=== PATIENT | male | born 1970 | race Caucasian/White ===

== ENCOUNTER → 2017-12-05 | Outpatient (CLI) | payer OTHER | LOC: FIMAGING 15:45 | PROVIDERS: ATTEND Internal Medicine Pulmonary Disease | DX: J98.4 Other disorders of lung (principal) ==

== ENCOUNTER 2018-05-20 12:43 | Emergency (ER) | payer OTHER ==
--- NOTE | 2018-05-20 14:25 | EDPHY ---
H & P Stated Complaint: sob/dry cough/ hx cryptogenic organizing pna Time Seen by Provider: 05/20/18 14:14 HPI/ROS: CHIEF COMPLAINT: Dry nonproductive cough HISTORY OF PRESENT ILLNESS: The patient presents to the ED with a one-week history of a dry nonproductive cough. The patient complains of mild associated rhinorrhea. He has dyspnea. He denies pleuritic chest pain. He denies any asymmetric calf pain or swelling. The patient does have a history of bacterial pneumonia treated 2 years ago. The patient does continue to smoke half a pack of cigarettes a day. The patient denies any complaints of acute abdominal pain. He denies rash. He denies recent prolonged immobility. REVIEW OF SYSTEMS: A comprehensive 10 point review of systems is otherwise negative aside from elements mentioned in the history of present illness. Source: Patient - Personal History Current Tetanus Diphtheria and Acellular Pertussis (TDAP): Yes - Medical/Surgical History Hx Asthma: No Hx Chronic Respiratory Disease: No Hx Diabetes: No Hx Cardiac Disease: No Hx Renal Disease: No Hx Cirrhosis: No Hx Alcoholism: No Hx HIV/AIDS: No Hx Splenectomy or Spleen Trauma: No Other PMH: anxiety, depression, GERD. cryptogenic organizing pna - Social History Smoking Status: Current every day smoker - Physical Exam Exam: General Appearance: Alert, no distress Eyes: Pupils equal and round no pallor or injection ENT, Mouth: Mucous membranes moist Respiratory: There are no retractions, lungs are clear to auscultation Cardiovascular: Regular rate and rhythm Gastrointestinal: Abdomen is soft and nontender, no masses, bowel sounds normal Neurological: A&O, normal motor function, normal sensory exam, normal cranial nerves Skin: Warm and dry, no rashes Musculoskeletal: Neck is supple nontender Extremities: symmetrical, full range of motion Constitutional: Initial Vital Signs Temperature (C) 37.3 C 05/20/18 12:51 Heart Rate 104 H 05/20/18 12:51 Respiratory Rate 18 05/20/18 12:51 Blood Pressure 127/87 H 05/20/18 12:51 O2 Sat (%) 92 05/20/18 12:51 O2 Delivery Mode Room Air Allergies/Adverse Reactions: azithromycin Allergy (Severe, Verified 05/20/18 12:50) Hives ceftriaxone Allergy (Severe, Verified 05/20/18 12:50) Hives Home Medications: Medication Instructions Recorded Citalopram [CeleXA 20 MG] 20 mg PO HS 07/19/15 Albuterol [Ventolin Hfa Inhaler] 2 puffs IH QID PRN #1 mdi 05/20/18 Doxycycline Hyclate 100 mg PO BID #20 tablet 05/20/18 Medical Decision Making - Diagnostics Imaging Results: Imaging Impressions Chest X-Ray 05/20/18 14:29 Impression: Negative chest. ED Course/Re-evaluation: The patient presents the ED with a one-week history of a cough with upper respiratory symptoms. The patient is noted to be hemodynamically stable. Chest x-ray demonstrates no evidence of a focal pneumonia. The patient has no symptoms suggestive of pulmonary embolism. The patient will be given a prescription for an albuterol inhaler. The patient is advised to follow up with his primary care provider for any unimproved symptoms. The patient is advised to return to the emergency department for worsening respiratory symptoms or other concerns. I re-evaluated the patient at 3:20 p.m. and he is in no acute distress. Given the patient's history of significant pneumonia who will be placed on doxycycline for the next 10 days. Differential Diagnosis: Differential diagnosis considered includes asthma, bronchitis, pneumonia - Data Points Medications Given: Discontinued Medications Albuterol/Ipratropium (Duoneb) 3 ml IH EDNOW ONE Stop: 05/20/18 14:30 Last Admin: 05/20/18 14:31 Dose: 3 ml Departure - Departure Disposition: Home, Routine, Self-Care Clinical Impression: Acute bronchitis Condition: Good Instructions: Acute Bronchitis (ED) Additional Instructions: 1. Please use your inhaler up to every 2-4 hours as needed for cough. 2. Please return to the ED for any markedly worsening symptoms or other concerns. 3. Your x-ray demonstrated no evidence of an obvious pneumonia. 4. Please follow-up with your primary care provider in the next several days for recheck. 5. Please take antibiotics as directed Referrals: Amauri Varghese MD [Primary Care Provider] - As per Instructions
[2018-05-20] MEDS ORDERED: IPRATROPIUM/ALBUTEROL 3 ML DEYVIAL IH ONE (14:29)
[2018-05-20 15:40] VITALS: BP 122/70
== END 2018-05-20 15:40 | disposition home or self-care (01) ==
DX: J40 Bronchitis, not specified as acute or chronic (principal); Z87.01 Personal history of pneumonia (recurrent); F17.200 Nicotine dependence, unspecified, uncomplicated

== ENCOUNTER 2018-05-28 18:10 | Inpatient (IN) | payer OTHER ==
--- NOTE | 2018-05-28 18:34 | EDPHY ---
H & P Time Seen by Provider: 05/28/18 18:34 HPI/ROS: CHIEF COMPLAINT: Shortness of breath and elevated D-dimer HISTORY OF PRESENT ILLNESS: Patient had a diagnosis of cryptogenic organizing pneumonia back in July of 2015 was treated successfully with prednisone a follow-up with Dr. Gutierrez. He was in our ED on May 20 with dry cough and some shortness of breath, was treated with doxycycline after negative chest x-ray and today was following up with his primary care physician at [facility]. He had a EKG performed and troponin that was negative. He had a positive D-dimer 3.36 and a creatinine 1.1 was referred to the emergency department. Patient tells me that he still gets really short of breath in that he lives on a 3rd floor condominium and has to stop and catch his breath only after going up a flight and half stairs. Still has a little bit of a cough but no chest pain. No fevers or chills. No leg swelling. Symptoms moderate to severe. REVIEW OF SYSTEMS: Eye: no change in vision ENT: no sore throat Cardiac: no chest pain or syncope Pulmonary: HPI Abdomen: no vomiting, diarrhea, abdominal pain Musculoskeletal: no back pain Skin: no rash Neuro: no headache Constitutional: no fever : no urinary symptoms A comprehensive 10 point review of systems is otherwise negative aside from elements mentioned in the history of present illness. PAST MEDICAL HISTORY: Includes anxiety and depression, GERD, cryptogenic organizing pneumonia as above. Social history: Tobacco smoker General Appearance: Alert and conversant, cooperative. Eyes: No scleral icterus. ENT, Mouth: Normal mucous membranes. Respiratory: Normal respiratory effort, breath sounds equal, lungs are clear to auscultation. Speaks in full sentences, no wheezing auscultated. Cardiovascular: Regular rate and rhythm. Gastrointestinal: Abdomen is soft and non tender. Neurological: Alert, face symmetric, normal motor and sensory in extremities. Skin: Warm and dry, no rashes. Musculoskeletal: No peripheral edema. Psychiatric: Not agitated. Emergency Department course/MDM: CT angiography discussed and consented. 1920: Large volume bilateral pulmonary embolism discussed with Dr. Ayala and with the patient, reviewed on the computer system with him. Lovenox 1 milligram/kilogram subcutaneous, admission to hospitalist service. Labs from earlier today including WBC 7.9, hematocrit 43.8, platelet 212. Sodium 141, potassium 4.7, glucose 88, creatinine 1.1, troponin less than 0.012. Smoking Status: Current every day smoker Constitutional: Initial Vital Signs Temperature (C) 36.7 C 05/28/18 18:26 Heart Rate 90 18 18:26 Respiratory Rate 19 18 18:26 Blood Pressure 131/91 H 18 18:26 O2 Sat (%) 94 18 18:26 O2 Delivery Mode Room Air Allergies/Adverse Reactions: azithromycin Allergy (Severe, Verified 05/28/18 18:25) Hives ceftriaxone Allergy (Severe, Verified 05/28/18 18:25) Hives Home Medications: Medication Instructions Recorded Citalopram [CeleXA 20 MG] 20 mg PO HS 07/19/15 Doxycycline Hyclate 100 mg PO BID #20 tablet 05/20/18 Albuterol [Ventolin Hfa Inhaler] 2 puffs IH QID PRN 05/28/18 Medical Decision Making - Diagnostics EKG Interpretation: 12-lead EKG interpreted by me; official reading is in computer system. My interpretation is sinus rhythm with anterior inverted T-waves, no ST elevation, rate 82. Imaging Results: Imaging Impressions Chest/Thorax CTA 05/28/18 18:40 Impression: 1. Large volume bilateral pulmonary emboli involving segmental branches with associated focal areas of presumed pulmonary infarct. 2. Stable subpleural consolidation or scarring right lower lobe posterior laterally in this patient with history of cryptogenic organizing pneumonia. 3. Development of small left pleural effusion. Findings discussed with Devin Chavez M.D. at 19:15 hour, 05/28/2018. Imaging: Discussed imaging studies w/ [employer] consultant Radiologist Differential Diagnosis: Differential diagnosis considered for shortness of breath including but not limited to pulmonary infectious process, COPD, asthma, pulmonary embolus and congestive heart failure. - Data Points Medications Given: Discontinued Medications Enoxaparin Sodium (Lovenox) 120 mg SC EDNOW ONE Stop: 05/28/18 19:22 Last Admin: 05/28/18 19:43 Dose: 120 mg Departure - Departure Disposition: [facility] Inpatient Acute Clinical Impression: Pulmonary embolism Qualifiers: Pulmonary embolism type: unspecified Chronicity: acute Condition: Good
[2018-05-28] MEDS ORDERED: IOPAMIDOL (ISOVUE 370) 100 ML BTL IV ONE ×2 (18:44→18:51)
[2018-05-28] MEDS ORDERED: ENOXAPARIN 120 MG/0.8 ML SYR SC ONE (19:21)
--- NOTE | 2018-05-28 19:27 | CPEKG ---
Test Reason : OPEN Blood Pressure : / mmHG Vent. Rate : 082 BPM Atrial Rate : 082 BPM P-R Int : 147 ms QRS Dur : 092 ms QT Int : 413 ms P-R-T Axes : 048 053 044 degrees QTc Int : 483 ms Sinus rhythm Abnormal T, consider ischemia, anterior leads Confirmed by Devin Chavez ([id number]) on 05/28/2018 7:27:25 PM Referred By: Confirmed By:Devin Chavez
[2018-05-28] MEDS ORDERED: ZOLPIDEM TARTRATE 5 MG TAB PO PRN (20:10)
[2018-05-28] MEDS ORDERED: ONDANSETRON 4 MG/2 ML VIAL IVP PRN (20:10)
[2018-05-28] MEDS ORDERED: HYDROCODONE/APAP 5/325 TAB PO PRN (20:10)
[2018-05-28] MEDS ORDERED: ACETAMINOPHEN 325 MG TAB PO PRN (20:10)
[2018-05-28] MEDS ORDERED: ONDANSETRON DISINTEGRATING 4 MG TAB PO PRN (20:10)
[2018-05-28] MEDS ORDERED: ALBUTEROL 3 ML DEYVIAL IH PRN (20:10)
[2018-05-28] MEDS ORDERED: PROMETHAZINE HCL 25 MG/ML INJ IVP PRN (20:10)
[2018-05-28] MEDS ORDERED: oxyCODONE IR 5 MG TAB PO PRN (20:10)
[2018-05-28] MEDS ORDERED: ALBUTEROL 60 PUFFS/8 GM MDI IH PRN (20:45)
[2018-05-28] MEDS: DOXYCYCLINE HYCLATE 100 MG CAP/TAB PO SCH (21:42)
[2018-05-28] MEDS: CITALOPRAM 20 MG TAB PO SCH (21:42)
--- NOTE | 2018-05-28 22:02 | PDGENHP ---
History and Physical - Chief Complaint sob - History of Present Illness 48 yo M with PMH that includes DVT several years ago, off of AC, and prior cryptogenic organizing pneumonia, presenting with 2 weeks of sob. He notes it came on fairly suddenly and was worse with any exertion, even just walking across the room. He did not have any associated fever, chest pain, cough or sputum production. He did not have any leg swelling or pain. He notes that he currently feels better since getting supplemental o2 in place. He has never had similar sxs in the past. He notes he is relatively sedentary but otherwise has not had any changes in his health or risk factors for recurrent VTE. 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 - Surgical History Reports: no pertinent surgical hx - Family History Positive for: non-pertinent - Social History Smoking Status: Current every day smoker Alcohol Use: Occasionally Drug Use: None Additional social history: 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 Review of Systems Review of Systems: ROS: 10pt was reviewed & negative except for what was stated in HPI & below Physical Exam Physical Exam: Temp Pulse Resp BP Pulse Ox 37.1 C 61 12 145/88 H 90 L 05/28/18 20:54 05/28/18 20:54 05/28/18 20:54 05/28/18 20:54 05/28/18 20:54 O2 (L/minute) 2.5 Constitutional: no apparent distress, obese Eyes: PERRL, anicteric sclera Ears, Nose, Mouth, Throat: moist mucous membranes, hearing normal Cardiovascular: regular rate and rhythym, no murmur, rub, or gallop, No edema Respiratory: no respiratory distress, no rales or rhonchi Gastrointestinal: normoactive bowel sounds, soft, non-tender abdomen Genitourinary: no bladder tenderness Skin: warm, normal color Musculoskeletal: full muscle strength Neurologic: AAOx3 Psychiatric: interacting appropriately, not anxious Lab Data & Imaging Review NT-Pro-B Natriuret Pep 533 pg/mL (0-125) H 05/28/18 21:17 Visualized and Interpreted imaging results: Yes Interpretation: CTA: large volume bilateral PE Visualized and Interpreted EKG results: Yes EKG Interpretation: Positive for: normal sinsus rhythm, T waves inversion Assessment & Plan Assessment: Pulmonary embolism (Acute) 48 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 Discussed with patient that will start AC and request that he f/u with hematology and have age appropriate cancer screening including colonoscopy. Started on lovenox for now, will likely transition to DOAC in am, was on xarelto previously and notes he tolerated that well. Does have elevated BNP and twi on ecg so will get f/u echo in am for further risk stratification. 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 Old records reviewed and summarized as above. Care plan reviewed with ER doctor as above.
[2018-05-29 05:53] LABS: PLATELET COUNT 185 10^3/uL (150-400)
[2018-05-29] MEDS: DOXYCYCLINE HYCLATE 100 MG CAP/TAB PO SCH ×2 (07:44→20:33)
[2018-05-29] MEDS: ENOXAPARIN 120 MG/0.8 ML SYR SC SCH ×2 (07:45→20:33)
--- NOTE | 2018-05-29 10:08 | HOSPPROG ---
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: anticoagulated tobacco use: recommend cessation Subjective: ekgw anterior twi, which are new (interp by me) Objective: Vital Signs Temp Pulse Resp BP Pulse Ox 36.6 C 63 14 108/83 H 87 L 05/29/18 07:10 05/29/18 07:10 05/29/18 07:10 05/29/18 07:10 05/29/18 07:59 Laboratory Results 05/29/18 04:33 05/29/18 04:33 05/28/18 05/29/18 05/30/18 05:59 05:59 05:59 Intake Total 490 Output Total 925 Balance -435 - Physical Exam Constitutional: no apparent distress, appears nourished Eyes: PERRL, anicteric sclera Ears, Nose, Mouth, Throat: moist mucous membranes, hearing normal Cardiovascular: regular rate and rhythym, no murmur, rub, or gallop, other (no split s2) Respiratory: no respiratory distress, other (R crackles) Gastrointestinal: soft, non-tender abdomen Genitourinary: no bladder fullness, No hendrickson in urethra Skin: warm, normal color Musculoskeletal: full muscle strength, No pain with ROM Neurologic: AAOx3 ICD10 Worksheet Patient Problems: Problems Problem Status Onset Pulmonary embolism Acute Community acquired pneumonia Acute
--- NOTE | 2018-05-29 11:50 | ASMTCMCOM ---
CM Note CM Note Notes: Pt admitted to hospital with bilateral PE. He is a dailly smoker and was on anticoagulants in the past. 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 CM available for any changes. DC Plan: Indepedent Date Signed: 05/29/2018 11:49 AM Electronically Signed By:Regine Alamo RN
--- NOTE | 2018-05-29 16:07 | PDMN ---
Medical Necessity Medical necessity: Change to inpt as of 05/29/18 @ 15:28. Pt meets inpt criteria per MD order and [facility], Pulmonary Embolism. 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 Upgraded to inpt today for EKG changes- anterior TWI, evidence of R heart strain from PE, still requiring 3 LO2, anticipate>2MN for ongoing eval/ management of above.
--- NOTE | 2018-05-29 17:00 | ECHO ---
[email or web address] [address] [address] Main: [phone] Fax: Transthoracic Echocardiogram Name: VIN FERGUSON MR#: [id number] Study Date: 05/29/2018 Study Time: 08:45 AM Date of : 1970 Age: 48 year(s) Height: 188 cm (74 in.) Weight: 118.39 kg (261 lb.) BSA: 2.43 m2 Gender: Male Examination: Echo Indication: large volume PE/elevated BNP Image Quality: Good Contrast: Requested by: Joanna Catalan BP: 108 mmHg/83 mmHg Heart Rate: Rhythm: Indication: large volume PE/elevated BNP Procedure Staff Rn Unit Manager: Zakia Obregon RDCS Reading Physician: Vin Keith MD Requesting Provider: Conclusions: Normal size left ventricle. Normal global systolic LV function. The ejection fraction is estimated to be 65-70 %. There is flattening of the interventricular septum c/w RV pressure/volume overload.. Mildly to moderately dilated right ventricle. Mildly reduced RV function. The mitral valve is normal in appearance and function. Trivial to mild mitral regurgitation. The aortic valve is normal in appearance and function. The aortic valve is tri-leaflet. There is no aortic valve regurgitation. The pulmonary artery pressure could not be adequately estimated. When compared to the 07/30/15 study. The right ventricular findings are new. Measurements: Chambers Valvular Assessment AV/MV Valvular Assessment TV/PV Normal Normal Normal Name Value Range Name Value Range Name Value Range Ao Daisha (MM): 3.4 cm (2.2 cm-3.7 AV Vmax: 1.19 m/s (1 m/s-1.7 TR Vmax: 2.54 mm/s ( - ) cm) m/s) TR PGmax: 26 mmHg ( - ) IVSd (2D): 0.7 cm (0.6 cm-1.1 AV meanP mmHg ( - ) syst. PAP: 31 mmHg ( - ) cm) MV E Vmax: 0.74 m/s ( - ) LVDd (2D): 5.2 cm (4.2 cm-5.9 MV A Vmax: 0.56 m/s ( - ) cm) MV E/A: 1.32 ( - ) LVDs (2D): 3.2 cm (2.1 cm-4 cm) LVPWd (2D): 1.1 cm (0.6 cm-1 cm) LVEF (MOD4): 72 % (>=55 %) EF Range: 65-70 % Patient: VIN FERGUSON Study Date: 05/29/2018 Page 1 of 2 08:45 AM Continued Measurements: Chambers Valvular Assessment AV/MV Valvular Assessment TV/PV Name Value Name Value Name Value LADs Lon.5 cm MV E' Septal: 0.07 m/s CVP (est.): 5 mmHg LA Area: 18.3 cm2 MV E/E' Septal: 10.50 LA Volume: 49 ml MV E/E' Lateral: 7.40 LA Volume Index: 20.2 ml/m2 Additional Vessels Name Value Ao Ascendin.1 cm Findings: Left Ventricle: Normal size left ventricle. No LV hypertrophy. Normal global systolic LV function. The ejection fraction is estimated to be 65-70 %. No regional wall motion abnormality. Normal diastolic LV function. There is flattening of the interventricular septum c/w RV pressure/volume overload.. Right Ventricle: Mildly to moderately dilated right ventricle. Mildly reduced RV function. There is a moderator band noted in the right ventricle. Left Atrium: The left atrium is normal in size. Right Atrium: The right atrium is normal in size. Mitral Valve: The mitral valve is normal in appearance and function. Trivial to mild mitral regurgitation. Aortic Valve: The aortic valve is normal in appearance and function. The aortic valve is tri-leaflet. There is no aortic valve regurgitation. Tricuspid Valve: The tricuspid valve is normal in appearance and function. Trivial tricuspid valve regurgitation. Pulmonic Valve: The pulmonic valve is normal in appearance and function. Aorta: The aorta is normal. Pericardium: No pericardial effusion. (No Signature Object) Patient: VIN FERGUSON Study Date: 05/29/2018 Page 2 of 2 08:45 AM [id number]
[2018-05-29] MEDS: CITALOPRAM 20 MG TAB PO SCH (20:33)
[2018-05-29] MEDS ORDERED: FAMOTIDINE 20 MG TAB PO PRN (22:18)
[2018-05-30] MEDS ORDERED: CALCIUM CARBONATE 500 MG CHEWABLE TAB PO PRN (00:13)
[2018-05-30] MEDS ORDERED: RANITIDINE HCL 150 MG/10 ML UDCUP PO PRN (00:15)
--- NOTE | 2018-05-30 10:01 | HOSPPROG ---
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 no hemoptysis Objective: Vital Signs Temp Pulse Resp BP Pulse Ox 36.7 C 53 L 16 133/69 H 94 05/30/18 08:00 05/30/18 08:00 05/30/18 08:00 05/30/18 08:00 05/30/18 08:00 Laboratory Results 05/29/18 04:33 05/29/18 04:33 05/29/18 05/30/18 05/31/18 05:59 05:59 05:59 Intake Total 490 1000 Output Total 925 1500 Balance -435 -500 - Physical Exam Constitutional: no apparent distress, appears nourished Eyes: PERRL, anicteric sclera Ears, Nose, Mouth, Throat: moist mucous membranes, hearing normal Cardiovascular: regular rate and rhythym, no murmur, rub, or gallop, No systolic murmur, No tachycardia Respiratory: no respiratory distress, other (scattered rhonchi) Gastrointestinal: normoactive bowel sounds, soft, non-tender abdomen Genitourinary: No hendrickson in urethra Skin: warm, normal color Musculoskeletal: full muscle strength ICD10 Worksheet Patient Problems: Problems Problem Status Onset Pulmonary embolism Acute Community acquired pneumonia Acute
[2018-05-30] MEDS: DOXYCYCLINE HYCLATE 100 MG CAP/TAB PO SCH ×2 (10:03→20:53)
[2018-05-30] MEDS: ENOXAPARIN 120 MG/0.8 ML SYR SC SCH ×2 (10:03→20:54)
[2018-05-30] MEDS: CITALOPRAM 20 MG TAB PO SCH (20:54)
[2018-05-31 05:04] LABS: PLATELET COUNT 176 10^3/uL (150-400)
[2018-05-31 07:28] VITALS: BP 133/77
[2018-05-31] MEDS: ENOXAPARIN 120 MG/0.8 ML SYR SC SCH (09:29)
--- NOTE | 2018-05-31 10:28 | HOSPPROG ---
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 tobacco use: recommend cessation dc today > 30 minutes on dc Subjective: anxious for dc Objective: Vital Signs Temp Pulse Resp BP Pulse Ox 36.8 C 58 L 12 133/77 H 91 L 05/31/18 07:26 05/31/18 07:26 05/31/18 07:26 05/31/18 07:26 05/31/18 07:26 Laboratory Results 05/31/18 04:15 05/29/18 04:33 05/30/18 05/31/18 06/01/18 05:59 05:59 05:59 Intake Total 1000 890 Output Total 1500 1400 375 Balance -500 -510 -375 - Physical Exam Constitutional: no apparent distress, appears nourished Eyes: PERRL, anicteric sclera Ears, Nose, Mouth, Throat: moist mucous membranes, hearing normal Cardiovascular: regular rate and rhythym, no murmur, rub, or gallop Respiratory: no respiratory distress, no rales or rhonchi Gastrointestinal: normoactive bowel sounds, soft, non-tender abdomen Genitourinary: no bladder fullness, No hendrickson in urethra Skin: warm, normal color Musculoskeletal: full muscle strength, no muscle tenderness Neurologic: AAOx3 ICD10 Worksheet Patient Problems: Problems Problem Status Onset Pulmonary embolism Acute Community acquired pneumonia Acute
--- NOTE | 2018-05-31 19:11 | GDS ---
DISCHARGE DIAGNOSES: 1. Pulmonary embolism, large volume. 2. Mild right heart strain. 3. Acute hypoxemic respiratory failure. 4. History of venous thromboembolism. Please see admission history and physical by Dr. Joanna Catalan. The patient presented on the evening of the , with increased work of breathing and cough. He had been sick for a bit of time. He had been prescribed antibiotics from a previous hospital stay. He did have a history of VTE, as well as cryptogenic organizing pneumonia. CTA of the chest on the revealed large volume pulmonary embolism with likely focal areas of presumed pulmonary infarct. He had subpleural consolidation and scarring from his previous cryptogenic organizing pneumonia. The pa tient was started on low-molecular weight heparin. Echocardiogram revealed mildly dilated RV with mi ld hypokinesis. He was neither tachycardic nor hypotensive and was ambulating without difficulty. H e had intermittent oxygen requirement here and an ambulatory room [facility] The patient was advised to quit smoking and is advised that he likely needs lifelong anticoagul ation. He is discharged home with 50 mg p.o. twice daily of Xarelto for 3 weeks followed by 20 daily . He has taken this previously for VTE and tolerated it. Discharge status is home. /[id number]/MODL
== END 2018-05-31 11:50 | disposition home or self-care (01) | DRG 175 ==
LOC: F3E 20:37
PROVIDERS: ADMIT Internal Medicine; ATTEND Internal Medicine
DX: I26.99 Other pulmonary embolism without acute cor pulmonale (principal); J96.01 Acute respiratory failure with hypoxia; I51.7 Cardiomegaly; Z86.718 Personal history of other venous thrombosis and embolism; F32.9 Major depressive disorder, single episode, unspecified; I10 Essential (primary) hypertension; Z72.0 Tobacco use
CPT/HCPCS: 97161-GP; 97165-GO; G0378; J1650; Q9967